=== PATIENT | male | born 2000 | race African-American/Black ===

== ENCOUNTER 2023-11-15 18:48 | Emergency (ER) | payer SELFPAY ==
[~2023-11-15] VITALS: Ht 162.6 cm; Wt 91.0 kg
[2023-11-15 18:54] VITALS: O2SAT 96
[2023-11-15 20:16] LABS: DIFFERENTIAL COMMENT 1; HEMATOCRIT. 47.3 % (42.0-52.0); HEMOGLOBIN. 15.7 g/dL (14.0-18.0); MEAN CORPUSCULAR HEMOGLOBIN 27.6 pg (28.0-32.0); MEAN CORPUSCULAR HGB CONC 33.2 g/dL (31.0-37.0); MEAN CORPUSCULAR VOLUME 83.2 fL (80.0-94.0); MEAN PLATELET VOLUME 8.2 fl (7.4-10.4); PLATELET 262 x1000/uL (130-400); RED BLOOD CELL COUNT 5.69 mill/uL (4.7-6.1); RED CELL DISTRIBUTION WIDTH 13.3 % (11.6-14.6); WHITE BLOOD COUNT 11.9 x1000/uL (4.5-11.0)
[2023-11-15 20:30] LABS: ALANINE AMINOTRANSFERASE 53 IU/L (10-49); ALBUMIN 5.1 g/dL (3.2-4.8); ASPARTATE AMINOTRANSFERASE 31 IU/L (<34); BILIRUBIN TOTAL 0.7 mg/dL (0.1-1.0); CALCIUM 9.5 mg/dL (8.7-10.4); CARBON DIOXIDE 28 mEq/L (21-32); CHLORIDE 103 mEq/L (98-107); GLUCOSE 115 mg/dL (70-105); POTASSIUM 4.1 mEq/L (3.5-5.1); PROTEIN TOTAL 7.6 g/dL (6.0-8.3); SODIUM 138 mEq/L (136-145); UREA NITROGEN BLOOD 13 mg/dL (9-23)
[2023-11-15] MEDS: SODIUM CHLORIDE 0.9% 1,000 ML IV ONE (20:34)
[2023-11-15 20:35] LABS: PLATELET ESTIMATE NORMAL
[2023-11-15] MEDS: ONDANSETRON HCL 4MG/2ML INJ IV STA (20:35)
[2023-11-15] MEDS: FAMOTIDINE 20MG/2ML VIAL IV STA (20:35)
[2023-11-15] MEDS: MAGNESIUM/ALUMINUM HYDROXIDE/SIMETHICONE 30ML UDC PO STA (20:35)
[2023-11-15 20:54] LABS: CLARITY URINE CLEAR (CLEAR); COLOR URINE YELLOW (YELLOW); GLUCOSE URINE NEGATIVE (NEGATIVE); KETONES URINE NEGATIVE (NEGATIVE); LEUKOCYTE ESTERASE URINE NEGATIVE (NEGATIVE); NITRITE URINE NEGATIVE (NEGATIVE); OCCULT BLOOD URINE NEGATIVE (NEGATIVE); PH URINE 6.5 (4.5-8.0); PROTEIN URINE NEGATIVE (NEGATIVE); SPECIFIC GRAVITY URINE 1.019 (1.005-1.030)
[2023-11-15] MEDS ORDERED: FAMO-135 MT (21:44)
[2023-11-15] MEDS ORDERED: ONDA4TAB50 MT (21:44)
[2023-11-15 22:04] VITALS: BP 131/84; PULSE 92; RESP 18; TEMP 98.8
== END 2023-11-15 22:13 | disposition home or self-care (01) ==
LOC: ER 18:48
DX: R10.816 Epigastric abdominal tenderness (principal); R11.2 Nausea with vomiting, unspecified
CPT/HCPCS: 80053; 81003; 83690; 85025; 36415; 71045; 96361; 96374; 96375; 99284; J3490; J2405; J7030; Z7610 ×2